=== PATIENT | female | born 1960 | race Caucasian/White ===

== ENCOUNTER 2018-02-09 12:41 | Outpatient (RCR) | payer OTHER ==
[~2018-02-09 12:41] MED LIST: DIOVAN40 MG PO; GLUMETZA500 MG PO; GLYBURIDE5 MG PO; IBUPROFEN200 MG PO; LASIX20 MG PO; MELOXICAM15 MG PO; MULTI-DAY VITA1 EACH PO; OSTERA TABLET1 EACH PO; PLAVIX75 MG PO; [UNRECOGNIZED DRUG - OTHER] PO
[2018-02-09] MEDS ORDERED: LIDOCAINE VISC 2% SOLN 15 ML UDC ONE (13:38)
== END 2018-02-12 ==
LOC: WCC 12:41
PROVIDERS: ATTEND Podiatrist Foot & Ankle Surgery
DX: E11.621 Type 2 diabetes mellitus with foot ulcer (principal); E11.40 Type 2 diabetes mellitus with diabetic neuropathy, unspecified; E11.65 Type 2 diabetes mellitus with hyperglycemia; L97.428 Non-pressure chronic ulcer of left heel and midfoot with other specified severity; L97.518 Non-pressure chronic ulcer of other part of right foot with other specified severity; L97.418 Non-pressure chronic ulcer of right heel and midfoot with other specified severity; R60.0 Localized edema; I87.2 Venous insufficiency (chronic) (peripheral); I89.0 Lymphedema, not elsewhere classified; I73.89 Other specified peripheral vascular diseases; I10 Essential (primary) hypertension; I48.2 Chronic atrial fibrillation; E66.01 Morbid (severe) obesity due to excess calories; M81.0 Age-related osteoporosis without current pathological fracture

== ENCOUNTER → 2018-02-14 | Outpatient (CLI) | payer OTHER ==
[~2018-02-14] MED LIST changes: +MINERAL OIL/PETROLAT/GLYCERI 6OZ BTL ONE
== END ==
LOC: WCC 11:11
PROVIDERS: ATTEND Podiatrist Foot & Ankle Surgery
DX: E11.621 Type 2 diabetes mellitus with foot ulcer (principal); E11.40 Type 2 diabetes mellitus with diabetic neuropathy, unspecified; E11.65 Type 2 diabetes mellitus with hyperglycemia; L97.428 Non-pressure chronic ulcer of left heel and midfoot with other specified severity; L97.518 Non-pressure chronic ulcer of other part of right foot with other specified severity; L97.418 Non-pressure chronic ulcer of right heel and midfoot with other specified severity; R60.0 Localized edema; I73.89 Other specified peripheral vascular diseases; I89.0 Lymphedema, not elsewhere classified; M81.0 Age-related osteoporosis without current pathological fracture; I87.2 Venous insufficiency (chronic) (peripheral); I48.2 Chronic atrial fibrillation; I10 Essential (primary) hypertension; E66.01 Morbid (severe) obesity due to excess calories

== ENCOUNTER 2018-03-09 12:55 | Outpatient (RCR) | payer OTHER ==
[~2018-03-09 12:55] MED LIST changes: +LIDOCAINE VISC 2% SOLN 15 ML UDC ONE
[2018-03-09] MEDS ORDERED: LIDOCAINE VISC 2% SOLN 15 ML UDC ONE (17:40)
== END 2018-03-14 ==
LOC: WCC 12:55
PROVIDERS: ATTEND Podiatrist Foot & Ankle Surgery
DX: E11.621 Type 2 diabetes mellitus with foot ulcer (principal); E11.65 Type 2 diabetes mellitus with hyperglycemia; E11.40 Type 2 diabetes mellitus with diabetic neuropathy, unspecified; L97.428 Non-pressure chronic ulcer of left heel and midfoot with other specified severity; L97.518 Non-pressure chronic ulcer of other part of right foot with other specified severity; L97.418 Non-pressure chronic ulcer of right heel and midfoot with other specified severity; R60.0 Localized edema; I87.2 Venous insufficiency (chronic) (peripheral); I89.0 Lymphedema, not elsewhere classified; I73.89 Other specified peripheral vascular diseases; I10 Essential (primary) hypertension; I48.2 Chronic atrial fibrillation; E66.01 Morbid (severe) obesity due to excess calories; M81.0 Age-related osteoporosis without current pathological fracture
CPT/HCPCS: 36415; 82948

== ENCOUNTER → 2018-03-23 | Outpatient (CLI) | payer OTHER ==
[~2018-03-23] MED LIST changes: -LIDOCAINE VISC 2% SOLN 15 ML UDC ONE; -MINERAL OIL/PETROLAT/GLYCERI 6OZ BTL ONE
== END ==
LOC: WCC 08:00
PROVIDERS: ATTEND Podiatrist Foot & Ankle Surgery
DX: E11.65 Type 2 diabetes mellitus with hyperglycemia (principal); E11.40 Type 2 diabetes mellitus with diabetic neuropathy, unspecified; E11.621 Type 2 diabetes mellitus with foot ulcer; L97.428 Non-pressure chronic ulcer of left heel and midfoot with other specified severity; L97.518 Non-pressure chronic ulcer of other part of right foot with other specified severity; R60.0 Localized edema; I73.89 Other specified peripheral vascular diseases; I89.0 Lymphedema, not elsewhere classified; I10 Essential (primary) hypertension; I87.2 Venous insufficiency (chronic) (peripheral); I48.2 Chronic atrial fibrillation; E66.01 Morbid (severe) obesity due to excess calories; M81.0 Age-related osteoporosis without current pathological fracture
CPT/HCPCS: 15275; 29581; Q4131

== ENCOUNTER → 2018-03-30 | Outpatient (CLI) | payer OTHER | LOC: WCC 08:00 | PROVIDERS: ATTEND Podiatrist Foot & Ankle Surgery | DX: E11.65 Type 2 diabetes mellitus with hyperglycemia (principal); E11.40 Type 2 diabetes mellitus with diabetic neuropathy, unspecified; E11.621 Type 2 diabetes mellitus with foot ulcer; L97.428 Non-pressure chronic ulcer of left heel and midfoot with other specified severity; L97.518 Non-pressure chronic ulcer of other part of right foot with other specified severity; R60.0 Localized edema; I89.0 Lymphedema, not elsewhere classified; I87.2 Venous insufficiency (chronic) (peripheral); I73.89 Other specified peripheral vascular diseases; I10 Essential (primary) hypertension; I48.2 Chronic atrial fibrillation; E66.01 Morbid (severe) obesity due to excess calories; M81.0 Age-related osteoporosis without current pathological fracture | CPT/HCPCS: 15275; 29581; Q4131 ==

== ENCOUNTER 2018-04-08 13:40 | Outpatient (RCR) | payer OTHER ==
[~2018-04-08 13:40] MED LIST changes: +LIDOCAINE VISC 2% SOLN 15 ML UDC ONE; +MINERAL OIL/PETROLAT/GLYCERI 6OZ BTL ONE
[2018-04-13] MEDS ORDERED: MINERAL OIL/PETROLAT/GLYCERI 6OZ BTL ONE (12:15)
== END 2018-04-14 ==
LOC: WCC 13:40
PROVIDERS: ATTEND Podiatrist Foot & Ankle Surgery
DX: E11.621 Type 2 diabetes mellitus with foot ulcer (principal); E11.65 Type 2 diabetes mellitus with hyperglycemia; E11.40 Type 2 diabetes mellitus with diabetic neuropathy, unspecified; L97.428 Non-pressure chronic ulcer of left heel and midfoot with other specified severity; L97.518 Non-pressure chronic ulcer of other part of right foot with other specified severity; R60.0 Localized edema; I89.0 Lymphedema, not elsewhere classified; I10 Essential (primary) hypertension; I48.2 Chronic atrial fibrillation; I73.89 Other specified peripheral vascular diseases; I87.2 Venous insufficiency (chronic) (peripheral); E66.01 Morbid (severe) obesity due to excess calories; M81.0 Age-related osteoporosis without current pathological fracture
CPT/HCPCS: 15275 ×3; 29581 ×3; 97597; 99213; Q4131 ×3

== ENCOUNTER → 2018-04-08 | Outpatient (CLI) | payer OTHER | LOC: WCC 08:00 | PROVIDERS: ATTEND Podiatrist Foot & Ankle Surgery | DX: E11.621 Type 2 diabetes mellitus with foot ulcer (principal); E11.65 Type 2 diabetes mellitus with hyperglycemia; E11.40 Type 2 diabetes mellitus with diabetic neuropathy, unspecified; L97.518 Non-pressure chronic ulcer of other part of right foot with other specified severity; L97.428 Non-pressure chronic ulcer of left heel and midfoot with other specified severity; I87.2 Venous insufficiency (chronic) (peripheral); R60.0 Localized edema; I89.0 Lymphedema, not elsewhere classified; I73.89 Other specified peripheral vascular diseases; M81.0 Age-related osteoporosis without current pathological fracture; I10 Essential (primary) hypertension; I48.2 Chronic atrial fibrillation; E66.01 Morbid (severe) obesity due to excess calories ==

== ENCOUNTER → 2018-04-13 | Outpatient (CLI) | payer OTHER ==
[~2018-04-13] MED LIST changes: -LIDOCAINE VISC 2% SOLN 15 ML UDC ONE; -MINERAL OIL/PETROLAT/GLYCERI 6OZ BTL ONE
== END ==
LOC: WCC 08:00
PROVIDERS: ATTEND Podiatrist Foot & Ankle Surgery
DX: E11.65 Type 2 diabetes mellitus with hyperglycemia (principal); E11.40 Type 2 diabetes mellitus with diabetic neuropathy, unspecified; E11.621 Type 2 diabetes mellitus with foot ulcer; L97.428 Non-pressure chronic ulcer of left heel and midfoot with other specified severity; L97.518 Non-pressure chronic ulcer of other part of right foot with other specified severity; R60.0 Localized edema; I73.89 Other specified peripheral vascular diseases; I89.0 Lymphedema, not elsewhere classified; I87.2 Venous insufficiency (chronic) (peripheral); I10 Essential (primary) hypertension; E66.01 Morbid (severe) obesity due to excess calories; I48.2 Chronic atrial fibrillation; M81.0 Age-related osteoporosis without current pathological fracture
CPT/HCPCS: 15275; 99213; Q4131

== ENCOUNTER → 2018-04-25 | Outpatient (CLI) | payer OTHER ==
[~2018-04-25] MED LIST changes: +MINERAL OIL/PETROLAT/GLYCERI 6OZ BTL ONE
== END ==
LOC: EDSTATUS 04-20 09:14 → WCC 10:27
PROVIDERS: ATTEND Podiatrist Foot & Ankle Surgery
DX: E11.621 Type 2 diabetes mellitus with foot ulcer (principal); E11.65 Type 2 diabetes mellitus with hyperglycemia; E11.40 Type 2 diabetes mellitus with diabetic neuropathy, unspecified; L97.428 Non-pressure chronic ulcer of left heel and midfoot with other specified severity; L97.518 Non-pressure chronic ulcer of other part of right foot with other specified severity; I89.0 Lymphedema, not elsewhere classified; R60.0 Localized edema; S90.421A Blister (nonthermal), right great toe, initial encounter; S90.424A Blister (nonthermal), right lesser toe(s), initial encounter; I87.2 Venous insufficiency (chronic) (peripheral); I73.89 Other specified peripheral vascular diseases; I10 Essential (primary) hypertension; I48.2 Chronic atrial fibrillation; E66.01 Morbid (severe) obesity due to excess calories; M81.0 Age-related osteoporosis without current pathological fracture

== ENCOUNTER → 2018-05-20 | Outpatient (CLI) | payer OTHER | LOC: WCC 11:12 | PROVIDERS: ATTEND Family Medicine | DX: E11.65 Type 2 diabetes mellitus with hyperglycemia (principal); E11.40 Type 2 diabetes mellitus with diabetic neuropathy, unspecified; E11.621 Type 2 diabetes mellitus with foot ulcer; L97.428 Non-pressure chronic ulcer of left heel and midfoot with other specified severity; I89.0 Lymphedema, not elsewhere classified; R60.0 Localized edema; I87.2 Venous insufficiency (chronic) (peripheral); I73.89 Other specified peripheral vascular diseases; S90.421A Blister (nonthermal), right great toe, initial encounter; I10 Essential (primary) hypertension; E66.01 Morbid (severe) obesity due to excess calories; I48.2 Chronic atrial fibrillation; M81.0 Age-related osteoporosis without current pathological fracture ==

== ENCOUNTER → 2018-06-15 | Outpatient (CLI) | payer OTHER ==
[~2018-06-15] MED LIST changes: -MINERAL OIL/PETROLAT/GLYCERI 6OZ BTL ONE
== END ==
LOC: WCC 13:39
PROVIDERS: ATTEND Podiatrist Foot & Ankle Surgery
DX: E11.65 Type 2 diabetes mellitus with hyperglycemia (principal); E11.40 Type 2 diabetes mellitus with diabetic neuropathy, unspecified; E11.621 Type 2 diabetes mellitus with foot ulcer; L97.428 Non-pressure chronic ulcer of left heel and midfoot with other specified severity; L97.511 Non-pressure chronic ulcer of other part of right foot limited to breakdown of skin; I73.89 Other specified peripheral vascular diseases; I89.0 Lymphedema, not elsewhere classified; R60.0 Localized edema; S90.421A Blister (nonthermal), right great toe, initial encounter; I10 Essential (primary) hypertension; I87.2 Venous insufficiency (chronic) (peripheral); I48.2 Chronic atrial fibrillation; E66.01 Morbid (severe) obesity due to excess calories; M81.0 Age-related osteoporosis without current pathological fracture

== ENCOUNTER → 2018-06-20 | Outpatient (CLI) | payer OTHER | LOC: EDSEX → WCC 14:33 | PROVIDERS: ATTEND Podiatrist Foot & Ankle Surgery | DX: E11.621 Type 2 diabetes mellitus with foot ulcer (principal); E11.65 Type 2 diabetes mellitus with hyperglycemia; E11.40 Type 2 diabetes mellitus with diabetic neuropathy, unspecified; L97.511 Non-pressure chronic ulcer of other part of right foot limited to breakdown of skin; L97.428 Non-pressure chronic ulcer of left heel and midfoot with other specified severity; S90.421A Blister (nonthermal), right great toe, initial encounter; R60.0 Localized edema; M81.0 Age-related osteoporosis without current pathological fracture; I87.2 Venous insufficiency (chronic) (peripheral); I89.0 Lymphedema, not elsewhere classified; I73.89 Other specified peripheral vascular diseases; I48.2 Chronic atrial fibrillation; I10 Essential (primary) hypertension; E66.01 Morbid (severe) obesity due to excess calories ==

== ENCOUNTER → 2018-06-27 | Outpatient (CLI) | payer OTHER | LOC: WCC 11:44 | PROVIDERS: ATTEND Podiatrist Foot & Ankle Surgery | DX: E11.621 Type 2 diabetes mellitus with foot ulcer (principal); E11.65 Type 2 diabetes mellitus with hyperglycemia; E11.40 Type 2 diabetes mellitus with diabetic neuropathy, unspecified; L97.428 Non-pressure chronic ulcer of left heel and midfoot with other specified severity; L97.511 Non-pressure chronic ulcer of other part of right foot limited to breakdown of skin; I87.2 Venous insufficiency (chronic) (peripheral); I73.89 Other specified peripheral vascular diseases; I89.0 Lymphedema, not elsewhere classified; R60.0 Localized edema; S90.421A Blister (nonthermal), right great toe, initial encounter; I48.2 Chronic atrial fibrillation; I10 Essential (primary) hypertension; M81.0 Age-related osteoporosis without current pathological fracture; E66.01 Morbid (severe) obesity due to excess calories ==

== ENCOUNTER → 2018-07-04 | Outpatient (CLI) | payer OTHER | LOC: WCC 14:06 | PROVIDERS: ATTEND Podiatrist Foot & Ankle Surgery | DX: E11.65 Type 2 diabetes mellitus with hyperglycemia (principal); E11.40 Type 2 diabetes mellitus with diabetic neuropathy, unspecified; E11.621 Type 2 diabetes mellitus with foot ulcer; L97.428 Non-pressure chronic ulcer of left heel and midfoot with other specified severity; L97.511 Non-pressure chronic ulcer of other part of right foot limited to breakdown of skin; L97.519 Non-pressure chronic ulcer of other part of right foot with unspecified severity; I87.2 Venous insufficiency (chronic) (peripheral); I89.0 Lymphedema, not elsewhere classified; I73.89 Other specified peripheral vascular diseases; S90.421A Blister (nonthermal), right great toe, initial encounter; R60.0 Localized edema; I10 Essential (primary) hypertension; I48.2 Chronic atrial fibrillation; M81.0 Age-related osteoporosis without current pathological fracture; E66.01 Morbid (severe) obesity due to excess calories ==

== ENCOUNTER → 2018-07-07 | Outpatient (CLI) | payer OTHER | LOC: EDSEX → WCC 14:05 | PROVIDERS: ATTEND Podiatrist Foot & Ankle Surgery | DX: E11.65 Type 2 diabetes mellitus with hyperglycemia (principal); E11.40 Type 2 diabetes mellitus with diabetic neuropathy, unspecified; E11.621 Type 2 diabetes mellitus with foot ulcer; L97.428 Non-pressure chronic ulcer of left heel and midfoot with other specified severity; L97.511 Non-pressure chronic ulcer of other part of right foot limited to breakdown of skin; L97.519 Non-pressure chronic ulcer of other part of right foot with unspecified severity; I87.2 Venous insufficiency (chronic) (peripheral); I89.0 Lymphedema, not elsewhere classified; I73.89 Other specified peripheral vascular diseases; S90.421A Blister (nonthermal), right great toe, initial encounter; R60.0 Localized edema; I10 Essential (primary) hypertension; I48.2 Chronic atrial fibrillation; M81.0 Age-related osteoporosis without current pathological fracture; E66.01 Morbid (severe) obesity due to excess calories ==

== ENCOUNTER → 2018-07-13 | Outpatient (CLI) | payer OTHER | LOC: WCC 15:07 | PROVIDERS: ATTEND Podiatrist Foot & Ankle Surgery | DX: E11.65 Type 2 diabetes mellitus with hyperglycemia (principal); E11.40 Type 2 diabetes mellitus with diabetic neuropathy, unspecified; E11.621 Type 2 diabetes mellitus with foot ulcer; L97.428 Non-pressure chronic ulcer of left heel and midfoot with other specified severity; L97.511 Non-pressure chronic ulcer of other part of right foot limited to breakdown of skin; L97.519 Non-pressure chronic ulcer of other part of right foot with unspecified severity; R60.0 Localized edema; I73.89 Other specified peripheral vascular diseases; I87.2 Venous insufficiency (chronic) (peripheral); I89.0 Lymphedema, not elsewhere classified; S90.421A Blister (nonthermal), right great toe, initial encounter; I10 Essential (primary) hypertension; I48.2 Chronic atrial fibrillation; E66.01 Morbid (severe) obesity due to excess calories; M81.0 Age-related osteoporosis without current pathological fracture | CPT/HCPCS: 87071; 87075; 87205 ==

== ENCOUNTER → 2018-07-27 | Outpatient (CLI) | payer OTHER | LOC: EDSEX → EDBD → WCC 13:02 | PROVIDERS: ATTEND Podiatrist Foot & Ankle Surgery | DX: E11.621 Type 2 diabetes mellitus with foot ulcer (principal); E11.65 Type 2 diabetes mellitus with hyperglycemia; E11.40 Type 2 diabetes mellitus with diabetic neuropathy, unspecified; L97.428 Non-pressure chronic ulcer of left heel and midfoot with other specified severity; B96.29 Other Escherichia coli [E. coli] as the cause of diseases classified elsewhere; L97.511 Non-pressure chronic ulcer of other part of right foot limited to breakdown of skin; L97.519 Non-pressure chronic ulcer of other part of right foot with unspecified severity; R60.0 Localized edema; I89.0 Lymphedema, not elsewhere classified; I87.2 Venous insufficiency (chronic) (peripheral); I73.89 Other specified peripheral vascular diseases; I10 Essential (primary) hypertension; E66.01 Morbid (severe) obesity due to excess calories; I48.2 Chronic atrial fibrillation; M81.0 Age-related osteoporosis without current pathological fracture; S90.421A Blister (nonthermal), right great toe, initial encounter ==

== ENCOUNTER → 2018-08-10 | Outpatient (CLI) | payer OTHER | LOC: WCC 14:09 | PROVIDERS: ATTEND Podiatrist Foot & Ankle Surgery | DX: E11.621 Type 2 diabetes mellitus with foot ulcer (principal); E11.65 Type 2 diabetes mellitus with hyperglycemia; E11.40 Type 2 diabetes mellitus with diabetic neuropathy, unspecified; L97.428 Non-pressure chronic ulcer of left heel and midfoot with other specified severity; L97.511 Non-pressure chronic ulcer of other part of right foot limited to breakdown of skin; L97.519 Non-pressure chronic ulcer of other part of right foot with unspecified severity; I87.2 Venous insufficiency (chronic) (peripheral); I73.89 Other specified peripheral vascular diseases; I89.0 Lymphedema, not elsewhere classified; R60.0 Localized edema; S90.421A Blister (nonthermal), right great toe, initial encounter; I10 Essential (primary) hypertension; I48.2 Chronic atrial fibrillation; B96.29 Other Escherichia coli [E. coli] as the cause of diseases classified elsewhere; E66.01 Morbid (severe) obesity due to excess calories; M81.0 Age-related osteoporosis without current pathological fracture ==

== ENCOUNTER → 2018-08-24 | Outpatient (CLI) | payer OTHER ==
[~2018-08-24] MED LIST changes: +MINERAL OIL/PETROLAT/GLYCERI 6OZ BTL ONE
== END ==
LOC: WCC 13:31
PROVIDERS: ATTEND Family Medicine
DX: E11.621 Type 2 diabetes mellitus with foot ulcer (principal); E11.65 Type 2 diabetes mellitus with hyperglycemia; E11.40 Type 2 diabetes mellitus with diabetic neuropathy, unspecified; L97.428 Non-pressure chronic ulcer of left heel and midfoot with other specified severity; L97.511 Non-pressure chronic ulcer of other part of right foot limited to breakdown of skin; L97.519 Non-pressure chronic ulcer of other part of right foot with unspecified severity; I73.89 Other specified peripheral vascular diseases; R60.0 Localized edema; I10 Essential (primary) hypertension; I48.2 Chronic atrial fibrillation; B96.29 Other Escherichia coli [E. coli] as the cause of diseases classified elsewhere; E66.01 Morbid (severe) obesity due to excess calories; I87.2 Venous insufficiency (chronic) (peripheral); I89.0 Lymphedema, not elsewhere classified; M81.0 Age-related osteoporosis without current pathological fracture; S90.421A Blister (nonthermal), right great toe, initial encounter

== ENCOUNTER → 2018-09-21 | Outpatient (CLI) | payer OTHER ==
[~2018-09-21] MED LIST changes: +LIDOCAINE/PRILOCAINE 2.5-2.5% KIT ONE
== END ==
LOC: EDBD → WCC 12:53
PROVIDERS: ATTEND Family Medicine
DX: E11.621 Type 2 diabetes mellitus with foot ulcer (principal); E11.40 Type 2 diabetes mellitus with diabetic neuropathy, unspecified; E11.65 Type 2 diabetes mellitus with hyperglycemia; L97.428 Non-pressure chronic ulcer of left heel and midfoot with other specified severity; L97.511 Non-pressure chronic ulcer of other part of right foot limited to breakdown of skin; L97.519 Non-pressure chronic ulcer of other part of right foot with unspecified severity; R60.0 Localized edema; I73.89 Other specified peripheral vascular diseases; I87.2 Venous insufficiency (chronic) (peripheral); I89.0 Lymphedema, not elsewhere classified; S90.421A Blister (nonthermal), right great toe, initial encounter; I10 Essential (primary) hypertension; B96.29 Other Escherichia coli [E. coli] as the cause of diseases classified elsewhere; E66.01 Morbid (severe) obesity due to excess calories; I48.2 Chronic atrial fibrillation; M81.0 Age-related osteoporosis without current pathological fracture

== ENCOUNTER → 2018-10-05 | Outpatient (CLI) | payer OTHER ==
[~2018-10-05] MED LIST changes: -LIDOCAINE/PRILOCAINE 2.5-2.5% KIT ONE; -MINERAL OIL/PETROLAT/GLYCERI 6OZ BTL ONE
== END ==
LOC: EDBD → WCC 12:13
PROVIDERS: ATTEND Family Medicine
DX: E11.621 Type 2 diabetes mellitus with foot ulcer (principal); E11.40 Type 2 diabetes mellitus with diabetic neuropathy, unspecified; E11.65 Type 2 diabetes mellitus with hyperglycemia; L97.428 Non-pressure chronic ulcer of left heel and midfoot with other specified severity; L97.511 Non-pressure chronic ulcer of other part of right foot limited to breakdown of skin; L03.818 Cellulitis of other sites; B96.29 Other Escherichia coli [E. coli] as the cause of diseases classified elsewhere; R60.0 Localized edema; S90.421A Blister (nonthermal), right great toe, initial encounter; M81.0 Age-related osteoporosis without current pathological fracture; I10 Essential (primary) hypertension; E66.01 Morbid (severe) obesity due to excess calories; I48.2 Chronic atrial fibrillation; I73.89 Other specified peripheral vascular diseases; I87.2 Venous insufficiency (chronic) (peripheral); I89.0 Lymphedema, not elsewhere classified
CPT/HCPCS: 87071; 87075; 87186; 87205

== ENCOUNTER → 2018-10-12 | Outpatient (CLI) | payer OTHER | LOC: EDBD → WCC 14:59 | PROVIDERS: ATTEND Family Medicine | DX: E11.621 Type 2 diabetes mellitus with foot ulcer (principal); E11.40 Type 2 diabetes mellitus with diabetic neuropathy, unspecified; E11.65 Type 2 diabetes mellitus with hyperglycemia; L97.428 Non-pressure chronic ulcer of left heel and midfoot with other specified severity; L97.511 Non-pressure chronic ulcer of other part of right foot limited to breakdown of skin; L03.818 Cellulitis of other sites; R60.0 Localized edema; I89.0 Lymphedema, not elsewhere classified; I87.2 Venous insufficiency (chronic) (peripheral); S90.421A Blister (nonthermal), right great toe, initial encounter; I10 Essential (primary) hypertension; I48.2 Chronic atrial fibrillation; I73.89 Other specified peripheral vascular diseases; B96.29 Other Escherichia coli [E. coli] as the cause of diseases classified elsewhere; E66.01 Morbid (severe) obesity due to excess calories; M81.0 Age-related osteoporosis without current pathological fracture ==

== ENCOUNTER → 2018-10-19 | Outpatient (CLI) | payer OTHER ==
[~2018-10-19] MED LIST changes: +MINERAL OIL/PETROLAT/GLYCERI 6OZ BTL ONE
== END ==
LOC: EDBD → WCC 13:57
PROVIDERS: ATTEND Family Medicine
DX: E11.621 Type 2 diabetes mellitus with foot ulcer (principal); E11.65 Type 2 diabetes mellitus with hyperglycemia; E11.40 Type 2 diabetes mellitus with diabetic neuropathy, unspecified; L97.428 Non-pressure chronic ulcer of left heel and midfoot with other specified severity; L97.519 Non-pressure chronic ulcer of other part of right foot with unspecified severity; L97.511 Non-pressure chronic ulcer of other part of right foot limited to breakdown of skin; L03.818 Cellulitis of other sites; I87.2 Venous insufficiency (chronic) (peripheral); I89.0 Lymphedema, not elsewhere classified; I73.89 Other specified peripheral vascular diseases; R60.0 Localized edema; S90.421A Blister (nonthermal), right great toe, initial encounter; I10 Essential (primary) hypertension; B96.29 Other Escherichia coli [E. coli] as the cause of diseases classified elsewhere; Z16.35 Resistance to multiple antimicrobial drugs; E66.01 Morbid (severe) obesity due to excess calories; I48.2 Chronic atrial fibrillation; M81.0 Age-related osteoporosis without current pathological fracture

== ENCOUNTER → 2018-10-26 | Outpatient (CLI) | payer OTHER ==
[~2018-10-26] MED LIST changes: -MINERAL OIL/PETROLAT/GLYCERI 6OZ BTL ONE
== END ==
LOC: EDBD → WCC 15:36
PROVIDERS: ATTEND Family Medicine
DX: E11.621 Type 2 diabetes mellitus with foot ulcer (principal); E11.40 Type 2 diabetes mellitus with diabetic neuropathy, unspecified; E11.65 Type 2 diabetes mellitus with hyperglycemia; L97.428 Non-pressure chronic ulcer of left heel and midfoot with other specified severity; L97.519 Non-pressure chronic ulcer of other part of right foot with unspecified severity; L97.511 Non-pressure chronic ulcer of other part of right foot limited to breakdown of skin; L03.818 Cellulitis of other sites; I89.0 Lymphedema, not elsewhere classified; I73.89 Other specified peripheral vascular diseases; I87.2 Venous insufficiency (chronic) (peripheral); R60.0 Localized edema; S90.421A Blister (nonthermal), right great toe, initial encounter; I10 Essential (primary) hypertension; I48.2 Chronic atrial fibrillation; B96.29 Other Escherichia coli [E. coli] as the cause of diseases classified elsewhere; Z16.35 Resistance to multiple antimicrobial drugs; E66.01 Morbid (severe) obesity due to excess calories; M81.0 Age-related osteoporosis without current pathological fracture

== ENCOUNTER → 2018-11-04 | Outpatient (CLI) | payer OTHER | LOC: EDBD → WCC 12:11 | PROVIDERS: ATTEND Family Medicine | DX: E11.621 Type 2 diabetes mellitus with foot ulcer (principal); E11.40 Type 2 diabetes mellitus with diabetic neuropathy, unspecified; E11.65 Type 2 diabetes mellitus with hyperglycemia; L97.428 Non-pressure chronic ulcer of left heel and midfoot with other specified severity; L97.519 Non-pressure chronic ulcer of other part of right foot with unspecified severity; L97.511 Non-pressure chronic ulcer of other part of right foot limited to breakdown of skin; L03.818 Cellulitis of other sites; I89.0 Lymphedema, not elsewhere classified; I87.2 Venous insufficiency (chronic) (peripheral); S90.421A Blister (nonthermal), right great toe, initial encounter; R60.0 Localized edema; I73.89 Other specified peripheral vascular diseases; I10 Essential (primary) hypertension; I48.2 Chronic atrial fibrillation; M81.0 Age-related osteoporosis without current pathological fracture; Z16.35 Resistance to multiple antimicrobial drugs; B96.29 Other Escherichia coli [E. coli] as the cause of diseases classified elsewhere; E66.01 Morbid (severe) obesity due to excess calories ==

== ENCOUNTER → 2018-11-16 | Outpatient (CLI) | payer OTHER ==
[~2018-11-16] MED LIST changes: +MINERAL OIL/PETROLAT/GLYCERI 6OZ BTL ONE
== END ==
LOC: WCC 12:50
PROVIDERS: ATTEND Podiatrist Foot & Ankle Surgery
DX: E11.621 Type 2 diabetes mellitus with foot ulcer (principal); E11.65 Type 2 diabetes mellitus with hyperglycemia; E11.40 Type 2 diabetes mellitus with diabetic neuropathy, unspecified; L97.428 Non-pressure chronic ulcer of left heel and midfoot with other specified severity; L97.529 Non-pressure chronic ulcer of other part of left foot with unspecified severity; L97.511 Non-pressure chronic ulcer of other part of right foot limited to breakdown of skin; L97.519 Non-pressure chronic ulcer of other part of right foot with unspecified severity; L03.818 Cellulitis of other sites; S90.421A Blister (nonthermal), right great toe, initial encounter; R60.0 Localized edema; I89.0 Lymphedema, not elsewhere classified; I87.2 Venous insufficiency (chronic) (peripheral); I73.89 Other specified peripheral vascular diseases; I10 Essential (primary) hypertension; B96.29 Other Escherichia coli [E. coli] as the cause of diseases classified elsewhere; Z16.35 Resistance to multiple antimicrobial drugs; E66.01 Morbid (severe) obesity due to excess calories; I48.2 Chronic atrial fibrillation; M81.0 Age-related osteoporosis without current pathological fracture

== ENCOUNTER → 2018-12-14 | Outpatient (CLI) | payer OTHER ==
[~2018-12-14] MED LIST changes: -MINERAL OIL/PETROLAT/GLYCERI 6OZ BTL ONE
== END ==
LOC: WCC 12:57
PROVIDERS: ATTEND Podiatrist Foot & Ankle Surgery
DX: E11.621 Type 2 diabetes mellitus with foot ulcer (principal); E11.65 Type 2 diabetes mellitus with hyperglycemia; E11.40 Type 2 diabetes mellitus with diabetic neuropathy, unspecified; L97.529 Non-pressure chronic ulcer of other part of left foot with unspecified severity; L97.428 Non-pressure chronic ulcer of left heel and midfoot with other specified severity; L97.511 Non-pressure chronic ulcer of other part of right foot limited to breakdown of skin; L97.519 Non-pressure chronic ulcer of other part of right foot with unspecified severity; L03.818 Cellulitis of other sites; I89.0 Lymphedema, not elsewhere classified; I87.2 Venous insufficiency (chronic) (peripheral); R60.0 Localized edema; S90.421A Blister (nonthermal), right great toe, initial encounter; M81.0 Age-related osteoporosis without current pathological fracture; I73.89 Other specified peripheral vascular diseases; I10 Essential (primary) hypertension; B96.29 Other Escherichia coli [E. coli] as the cause of diseases classified elsewhere; E66.01 Morbid (severe) obesity due to excess calories; I48.2 Chronic atrial fibrillation; Z16.35 Resistance to multiple antimicrobial drugs

== ENCOUNTER → 2019-01-02 | Outpatient (CLI) | payer OTHER ==
[~2019-01-02] MED LIST changes: +MINERAL OIL/PETROLAT/GLYCERI 6OZ BTL ONE
== END ==
LOC: WCC 14:23
PROVIDERS: ATTEND Podiatrist Foot & Ankle Surgery
DX: E11.621 Type 2 diabetes mellitus with foot ulcer (principal); E11.40 Type 2 diabetes mellitus with diabetic neuropathy, unspecified; E11.65 Type 2 diabetes mellitus with hyperglycemia; L97.428 Non-pressure chronic ulcer of left heel and midfoot with other specified severity; L97.529 Non-pressure chronic ulcer of other part of left foot with unspecified severity; L97.511 Non-pressure chronic ulcer of other part of right foot limited to breakdown of skin; S90.421A Blister (nonthermal), right great toe, initial encounter; I73.89 Other specified peripheral vascular diseases; I87.2 Venous insufficiency (chronic) (peripheral); R60.0 Localized edema; I89.0 Lymphedema, not elsewhere classified; I10 Essential (primary) hypertension; E66.01 Morbid (severe) obesity due to excess calories; I48.2 Chronic atrial fibrillation; M81.0 Age-related osteoporosis without current pathological fracture

== ENCOUNTER → 2019-01-30 | Outpatient (CLI) | payer OTHER | LOC: WCC 14:39 | PROVIDERS: ATTEND Podiatrist Foot & Ankle Surgery | DX: E11.621 Type 2 diabetes mellitus with foot ulcer (principal); E11.40 Type 2 diabetes mellitus with diabetic neuropathy, unspecified; E11.65 Type 2 diabetes mellitus with hyperglycemia; L97.428 Non-pressure chronic ulcer of left heel and midfoot with other specified severity; L97.511 Non-pressure chronic ulcer of other part of right foot limited to breakdown of skin; I73.89 Other specified peripheral vascular diseases; S90.421A Blister (nonthermal), right great toe, initial encounter; I89.0 Lymphedema, not elsewhere classified; I87.2 Venous insufficiency (chronic) (peripheral); R60.0 Localized edema; I10 Essential (primary) hypertension; I48.2 Chronic atrial fibrillation; E66.01 Morbid (severe) obesity due to excess calories; M81.0 Age-related osteoporosis without current pathological fracture ==

== ENCOUNTER → 2019-02-13 | Outpatient (CLI) | payer OTHER ==
[~2019-02-13] MED LIST changes: +TRIAMCINOLONE ACET 0.1% CREAM 15 GM TUBE ONE
== END ==
LOC: WCC 13:49
PROVIDERS: ATTEND Podiatrist Foot & Ankle Surgery
DX: E11.621 Type 2 diabetes mellitus with foot ulcer (principal); E11.40 Type 2 diabetes mellitus with diabetic neuropathy, unspecified; E11.65 Type 2 diabetes mellitus with hyperglycemia; L97.428 Non-pressure chronic ulcer of left heel and midfoot with other specified severity; L97.429 Non-pressure chronic ulcer of left heel and midfoot with unspecified severity; L97.511 Non-pressure chronic ulcer of other part of right foot limited to breakdown of skin; L97.419 Non-pressure chronic ulcer of right heel and midfoot with unspecified severity; L97.519 Non-pressure chronic ulcer of other part of right foot with unspecified severity; R60.0 Localized edema; S90.421A Blister (nonthermal), right great toe, initial encounter; I73.89 Other specified peripheral vascular diseases; I87.2 Venous insufficiency (chronic) (peripheral); I89.0 Lymphedema, not elsewhere classified; I10 Essential (primary) hypertension; E66.01 Morbid (severe) obesity due to excess calories; I48.2 Chronic atrial fibrillation; M81.0 Age-related osteoporosis without current pathological fracture

== ENCOUNTER → 2019-02-15 | Outpatient (CLI) | payer OTHER ==
[~2019-02-15] MED LIST changes: +LIDOCAINE VISC 2% SOLN 15 ML UDC ONE; -TRIAMCINOLONE ACET 0.1% CREAM 15 GM TUBE ONE
== END ==
LOC: WCC 16:32
PROVIDERS: ATTEND Family Medicine
DX: E11.621 Type 2 diabetes mellitus with foot ulcer (principal); E11.65 Type 2 diabetes mellitus with hyperglycemia; E11.40 Type 2 diabetes mellitus with diabetic neuropathy, unspecified; L97.428 Non-pressure chronic ulcer of left heel and midfoot with other specified severity; L97.429 Non-pressure chronic ulcer of left heel and midfoot with unspecified severity; L97.519 Non-pressure chronic ulcer of other part of right foot with unspecified severity; L97.419 Non-pressure chronic ulcer of right heel and midfoot with unspecified severity; S90.421A Blister (nonthermal), right great toe, initial encounter; I87.2 Venous insufficiency (chronic) (peripheral); I89.0 Lymphedema, not elsewhere classified; R60.0 Localized edema; I73.89 Other specified peripheral vascular diseases; M81.0 Age-related osteoporosis without current pathological fracture; I48.2 Chronic atrial fibrillation; I10 Essential (primary) hypertension; E66.01 Morbid (severe) obesity due to excess calories

== ENCOUNTER → 2019-02-17 | Outpatient (CLI) | payer OTHER ==
[~2019-02-17] MED LIST changes: -LIDOCAINE VISC 2% SOLN 15 ML UDC ONE; -MINERAL OIL/PETROLAT/GLYCERI 6OZ BTL ONE
== END ==
LOC: WCC 15:39
PROVIDERS: ATTEND Family Medicine
DX: E11.621 Type 2 diabetes mellitus with foot ulcer (principal); E11.40 Type 2 diabetes mellitus with diabetic neuropathy, unspecified; E11.65 Type 2 diabetes mellitus with hyperglycemia; L97.428 Non-pressure chronic ulcer of left heel and midfoot with other specified severity; L97.429 Non-pressure chronic ulcer of left heel and midfoot with unspecified severity; L97.419 Non-pressure chronic ulcer of right heel and midfoot with unspecified severity; L97.519 Non-pressure chronic ulcer of other part of right foot with unspecified severity; S90.421A Blister (nonthermal), right great toe, initial encounter; I87.2 Venous insufficiency (chronic) (peripheral); I89.0 Lymphedema, not elsewhere classified; I73.89 Other specified peripheral vascular diseases; R60.0 Localized edema; I10 Essential (primary) hypertension; M81.0 Age-related osteoporosis without current pathological fracture; I48.2 Chronic atrial fibrillation; E66.01 Morbid (severe) obesity due to excess calories

== ENCOUNTER → 2019-02-20 | Outpatient (CLI) | payer OTHER | LOC: WCC 14:00 | PROVIDERS: ATTEND Family Medicine | DX: E11.621 Type 2 diabetes mellitus with foot ulcer (principal); E11.65 Type 2 diabetes mellitus with hyperglycemia; E11.40 Type 2 diabetes mellitus with diabetic neuropathy, unspecified; L97.428 Non-pressure chronic ulcer of left heel and midfoot with other specified severity; L97.429 Non-pressure chronic ulcer of left heel and midfoot with unspecified severity; L97.519 Non-pressure chronic ulcer of other part of right foot with unspecified severity; L97.419 Non-pressure chronic ulcer of right heel and midfoot with unspecified severity; I73.89 Other specified peripheral vascular diseases; I87.2 Venous insufficiency (chronic) (peripheral); I89.0 Lymphedema, not elsewhere classified; R60.0 Localized edema; S90.421A Blister (nonthermal), right great toe, initial encounter; I10 Essential (primary) hypertension; E66.01 Morbid (severe) obesity due to excess calories; I48.2 Chronic atrial fibrillation; M18.0 Bilateral primary osteoarthritis of first carpometacarpal joints ==

== ENCOUNTER → 2019-03-13 | Outpatient (CLI) | payer OTHER | LOC: WCC 13:51 | PROVIDERS: ATTEND Podiatrist Foot & Ankle Surgery | DX: E11.621 Type 2 diabetes mellitus with foot ulcer (principal); E11.40 Type 2 diabetes mellitus with diabetic neuropathy, unspecified; E11.65 Type 2 diabetes mellitus with hyperglycemia; L97.428 Non-pressure chronic ulcer of left heel and midfoot with other specified severity; L97.519 Non-pressure chronic ulcer of other part of right foot with unspecified severity; S90.421A Blister (nonthermal), right great toe, initial encounter; I73.89 Other specified peripheral vascular diseases; I87.2 Venous insufficiency (chronic) (peripheral); I89.0 Lymphedema, not elsewhere classified; R60.0 Localized edema; I10 Essential (primary) hypertension; E66.01 Morbid (severe) obesity due to excess calories; I48.2 Chronic atrial fibrillation; M81.0 Age-related osteoporosis without current pathological fracture ==

== ENCOUNTER → 2019-03-15 | Outpatient (CLI) | payer OTHER ==
[~2019-03-15] MED LIST changes: +MINERAL OIL/PETROLAT/GLYCERI 6OZ BTL ONE
== END ==
LOC: WCC 11:34
PROVIDERS: ATTEND Family Medicine
DX: E11.621 Type 2 diabetes mellitus with foot ulcer (principal); E11.65 Type 2 diabetes mellitus with hyperglycemia; E11.40 Type 2 diabetes mellitus with diabetic neuropathy, unspecified; L97.519 Non-pressure chronic ulcer of other part of right foot with unspecified severity; L97.428 Non-pressure chronic ulcer of left heel and midfoot with other specified severity; I87.2 Venous insufficiency (chronic) (peripheral); I73.89 Other specified peripheral vascular diseases; I89.0 Lymphedema, not elsewhere classified; S90.421A Blister (nonthermal), right great toe, initial encounter; R60.0 Localized edema; I10 Essential (primary) hypertension; M81.0 Age-related osteoporosis without current pathological fracture; I48.2 Chronic atrial fibrillation; E66.01 Morbid (severe) obesity due to excess calories
CPT/HCPCS: 36415; 82948

== ENCOUNTER → 2019-03-20 | Outpatient (CLI) | payer OTHER ==
[~2019-03-20] MED LIST changes: -MINERAL OIL/PETROLAT/GLYCERI 6OZ BTL ONE
== END ==
LOC: WCC 14:39
PROVIDERS: ATTEND Family Medicine
DX: E11.621 Type 2 diabetes mellitus with foot ulcer (principal); E11.65 Type 2 diabetes mellitus with hyperglycemia; E11.40 Type 2 diabetes mellitus with diabetic neuropathy, unspecified; L97.428 Non-pressure chronic ulcer of left heel and midfoot with other specified severity; L97.519 Non-pressure chronic ulcer of other part of right foot with unspecified severity; S90.421A Blister (nonthermal), right great toe, initial encounter; I89.0 Lymphedema, not elsewhere classified; I73.89 Other specified peripheral vascular diseases; I87.2 Venous insufficiency (chronic) (peripheral); R60.0 Localized edema; I10 Essential (primary) hypertension; M81.0 Age-related osteoporosis without current pathological fracture; I48.2 Chronic atrial fibrillation; E66.01 Morbid (severe) obesity due to excess calories

== ENCOUNTER → 2019-03-22 | Outpatient (CLI) | payer OTHER | LOC: WCC 15:03 | PROVIDERS: ATTEND Family Medicine | DX: E11.621 Type 2 diabetes mellitus with foot ulcer (principal); E11.65 Type 2 diabetes mellitus with hyperglycemia; E11.40 Type 2 diabetes mellitus with diabetic neuropathy, unspecified; L97.428 Non-pressure chronic ulcer of left heel and midfoot with other specified severity; L97.519 Non-pressure chronic ulcer of other part of right foot with unspecified severity; S90.421A Blister (nonthermal), right great toe, initial encounter; I87.2 Venous insufficiency (chronic) (peripheral); R60.0 Localized edema; I89.0 Lymphedema, not elsewhere classified; I73.89 Other specified peripheral vascular diseases; I10 Essential (primary) hypertension; M81.0 Age-related osteoporosis without current pathological fracture; I48.2 Chronic atrial fibrillation; E66.01 Morbid (severe) obesity due to excess calories ==

== ENCOUNTER → 2019-04-03 | Outpatient (CLI) | payer OTHER | LOC: WCC 15:11 | PROVIDERS: ATTEND Podiatrist Foot & Ankle Surgery | DX: E11.621 Type 2 diabetes mellitus with foot ulcer (principal); E11.40 Type 2 diabetes mellitus with diabetic neuropathy, unspecified; E11.65 Type 2 diabetes mellitus with hyperglycemia; L97.428 Non-pressure chronic ulcer of left heel and midfoot with other specified severity; R60.0 Localized edema; I73.89 Other specified peripheral vascular diseases; I87.2 Venous insufficiency (chronic) (peripheral); I89.0 Lymphedema, not elsewhere classified; S90.421A Blister (nonthermal), right great toe, initial encounter; I10 Essential (primary) hypertension; E66.01 Morbid (severe) obesity due to excess calories; I48.2 Chronic atrial fibrillation; M81.0 Age-related osteoporosis without current pathological fracture | CPT/HCPCS: 87071; 87075; 87205 ==

== ENCOUNTER → 2019-04-18 | Outpatient (CLI) | payer OTHER ==
[~2019-04-18] MED LIST changes: +COLLAGENASE OINTMENT 30 GM TUBE ONE; +MINERAL OIL/PETROLAT/GLYCERI 6OZ BTL ONE; +MUPIROCIN 2% OINT 22 GM TUBE ONE
== END ==
LOC: WCC 12:36
PROVIDERS: ATTEND Family Medicine
DX: E11.621 Type 2 diabetes mellitus with foot ulcer (principal); E11.65 Type 2 diabetes mellitus with hyperglycemia; E11.40 Type 2 diabetes mellitus with diabetic neuropathy, unspecified; L97.428 Non-pressure chronic ulcer of left heel and midfoot with other specified severity; I87.2 Venous insufficiency (chronic) (peripheral); R60.0 Localized edema; I89.0 Lymphedema, not elsewhere classified; S90.421A Blister (nonthermal), right great toe, initial encounter; I73.89 Other specified peripheral vascular diseases; I10 Essential (primary) hypertension; M81.0 Age-related osteoporosis without current pathological fracture; I48.2 Chronic atrial fibrillation; E66.01 Morbid (severe) obesity due to excess calories

== ENCOUNTER → 2019-04-24 | Outpatient (CLI) | payer OTHER ==
[~2019-04-24] MED LIST changes: -COLLAGENASE OINTMENT 30 GM TUBE ONE; -MINERAL OIL/PETROLAT/GLYCERI 6OZ BTL ONE; -MUPIROCIN 2% OINT 22 GM TUBE ONE
== END ==
LOC: EDSEX → WCC 13:13
PROVIDERS: ATTEND Podiatrist Foot & Ankle Surgery
DX: E11.621 Type 2 diabetes mellitus with foot ulcer (principal); E11.40 Type 2 diabetes mellitus with diabetic neuropathy, unspecified; E11.65 Type 2 diabetes mellitus with hyperglycemia; L97.428 Non-pressure chronic ulcer of left heel and midfoot with other specified severity; R60.0 Localized edema; E66.01 Morbid (severe) obesity due to excess calories; I10 Essential (primary) hypertension; I48.2 Chronic atrial fibrillation; I73.89 Other specified peripheral vascular diseases; I87.2 Venous insufficiency (chronic) (peripheral); I89.0 Lymphedema, not elsewhere classified; M81.0 Age-related osteoporosis without current pathological fracture; S90.421A Blister (nonthermal), right great toe, initial encounter

== ENCOUNTER → 2019-05-09 | Outpatient (CLI) | payer OTHER | LOC: EDSEX → WCC 03:00 | PROVIDERS: ATTEND Family Medicine | DX: E11.621 Type 2 diabetes mellitus with foot ulcer (principal); E11.65 Type 2 diabetes mellitus with hyperglycemia; E11.40 Type 2 diabetes mellitus with diabetic neuropathy, unspecified; L97.428 Non-pressure chronic ulcer of left heel and midfoot with other specified severity; I87.2 Venous insufficiency (chronic) (peripheral); I89.0 Lymphedema, not elsewhere classified; I73.89 Other specified peripheral vascular diseases; R60.0 Localized edema; S90.421A Blister (nonthermal), right great toe, initial encounter; I10 Essential (primary) hypertension; M81.0 Age-related osteoporosis without current pathological fracture; I48.2 Chronic atrial fibrillation; E66.01 Morbid (severe) obesity due to excess calories ==

== ENCOUNTER → 2019-05-16 | Outpatient (CLI) | payer OTHER ==
[~2019-05-16] MED LIST changes: +MINERAL OIL/PETROLAT/GLYCERI 6OZ BTL ONE
== END ==
LOC: EDSEX → WCC 13:42
PROVIDERS: ATTEND Family Medicine
DX: E11.621 Type 2 diabetes mellitus with foot ulcer (principal); E11.65 Type 2 diabetes mellitus with hyperglycemia; E11.40 Type 2 diabetes mellitus with diabetic neuropathy, unspecified; L97.428 Non-pressure chronic ulcer of left heel and midfoot with other specified severity; S90.421A Blister (nonthermal), right great toe, initial encounter; I87.2 Venous insufficiency (chronic) (peripheral); I73.89 Other specified peripheral vascular diseases; R60.0 Localized edema; I89.0 Lymphedema, not elsewhere classified; I10 Essential (primary) hypertension; M81.0 Age-related osteoporosis without current pathological fracture; I48.2 Chronic atrial fibrillation; E66.01 Morbid (severe) obesity due to excess calories

== ENCOUNTER → 2019-05-22 | Outpatient (CLI) | payer OTHER ==
[~2019-05-22] MED LIST changes: -MINERAL OIL/PETROLAT/GLYCERI 6OZ BTL ONE
== END ==
LOC: EDSEX → WCC 14:56
PROVIDERS: ATTEND Family Medicine
DX: E11.40 Type 2 diabetes mellitus with diabetic neuropathy, unspecified (principal); E11.65 Type 2 diabetes mellitus with hyperglycemia; E11.621 Type 2 diabetes mellitus with foot ulcer; L97.428 Non-pressure chronic ulcer of left heel and midfoot with other specified severity; R60.0 Localized edema; I73.89 Other specified peripheral vascular diseases; I87.2 Venous insufficiency (chronic) (peripheral); I89.0 Lymphedema, not elsewhere classified; S90.421A Blister (nonthermal), right great toe, initial encounter; I10 Essential (primary) hypertension; E66.01 Morbid (severe) obesity due to excess calories; I48.2 Chronic atrial fibrillation; M81.0 Age-related osteoporosis without current pathological fracture

== ENCOUNTER → 2019-05-30 | Outpatient (CLI) | payer OTHER | LOC: WCC 15:12 | PROVIDERS: ATTEND Family Medicine | DX: E11.621 Type 2 diabetes mellitus with foot ulcer (principal); E11.40 Type 2 diabetes mellitus with diabetic neuropathy, unspecified; E11.65 Type 2 diabetes mellitus with hyperglycemia; I87.2 Venous insufficiency (chronic) (peripheral); R60.0 Localized edema; I89.0 Lymphedema, not elsewhere classified; I73.89 Other specified peripheral vascular diseases; S90.421A Blister (nonthermal), right great toe, initial encounter; I10 Essential (primary) hypertension; I48.2 Chronic atrial fibrillation; M81.0 Age-related osteoporosis without current pathological fracture; E66.01 Morbid (severe) obesity due to excess calories ==

== ENCOUNTER → 2019-06-06 | Outpatient (CLI) | payer OTHER | LOC: WCC 10:50 | PROVIDERS: ATTEND Family Medicine | DX: E11.621 Type 2 diabetes mellitus with foot ulcer (principal); E11.65 Type 2 diabetes mellitus with hyperglycemia; E11.40 Type 2 diabetes mellitus with diabetic neuropathy, unspecified; I87.2 Venous insufficiency (chronic) (peripheral); I89.0 Lymphedema, not elsewhere classified; I73.89 Other specified peripheral vascular diseases; R60.0 Localized edema; S90.421A Blister (nonthermal), right great toe, initial encounter; S90.424A Blister (nonthermal), right lesser toe(s), initial encounter; I10 Essential (primary) hypertension; W22.03XA Walked into furniture, initial encounter; M81.0 Age-related osteoporosis without current pathological fracture; I48.2 Chronic atrial fibrillation; E66.01 Morbid (severe) obesity due to excess calories ==

== ENCOUNTER → 2019-06-19 | Outpatient (CLI) | payer OTHER ==
[~2019-06-19] MED LIST changes: +MINERAL OIL/PETROLAT/GLYCERI 6OZ BTL ONE
== END ==
LOC: WCC 13:46
PROVIDERS: ATTEND Family Medicine
DX: E11.40 Type 2 diabetes mellitus with diabetic neuropathy, unspecified (principal); E11.65 Type 2 diabetes mellitus with hyperglycemia; E11.621 Type 2 diabetes mellitus with foot ulcer; I73.89 Other specified peripheral vascular diseases; I87.2 Venous insufficiency (chronic) (peripheral); R60.0 Localized edema; I89.0 Lymphedema, not elsewhere classified; S90.421A Blister (nonthermal), right great toe, initial encounter; S90.424A Blister (nonthermal), right lesser toe(s), initial encounter; E66.01 Morbid (severe) obesity due to excess calories; I48.2 Chronic atrial fibrillation; M81.0 Age-related osteoporosis without current pathological fracture; W22.03XA Walked into furniture, initial encounter

== ENCOUNTER → 2019-06-22 | Outpatient (CLI) | payer OTHER ==
[~2019-06-22] MED LIST changes: -MINERAL OIL/PETROLAT/GLYCERI 6OZ BTL ONE
== END ==
LOC: WCC 11:11
PROVIDERS: ATTEND Podiatrist Foot & Ankle Surgery
DX: E11.621 Type 2 diabetes mellitus with foot ulcer (principal); E11.40 Type 2 diabetes mellitus with diabetic neuropathy, unspecified; E11.65 Type 2 diabetes mellitus with hyperglycemia; S90.421A Blister (nonthermal), right great toe, initial encounter; I73.89 Other specified peripheral vascular diseases; I87.2 Venous insufficiency (chronic) (peripheral); R60.0 Localized edema; I89.0 Lymphedema, not elsewhere classified; I10 Essential (primary) hypertension; W22.03XA Walked into furniture, initial encounter; M81.0 Age-related osteoporosis without current pathological fracture; I48.2 Chronic atrial fibrillation; E66.01 Morbid (severe) obesity due to excess calories

== ENCOUNTER → 2019-07-13 | Outpatient (CLI) | payer OTHER | LOC: WCC 10:38 | PROVIDERS: ATTEND Podiatrist Foot & Ankle Surgery | DX: E11.621 Type 2 diabetes mellitus with foot ulcer (principal); E11.40 Type 2 diabetes mellitus with diabetic neuropathy, unspecified; E11.65 Type 2 diabetes mellitus with hyperglycemia; S90.421A Blister (nonthermal), right great toe, initial encounter; R60.0 Localized edema; I73.89 Other specified peripheral vascular diseases; I89.0 Lymphedema, not elsewhere classified; I87.2 Venous insufficiency (chronic) (peripheral); I10 Essential (primary) hypertension; W22.03XA Walked into furniture, initial encounter; M81.0 Age-related osteoporosis without current pathological fracture; I48.2 Chronic atrial fibrillation; E66.01 Morbid (severe) obesity due to excess calories ==

== ENCOUNTER → 2019-07-18 | Outpatient (CLI) | payer OTHER | LOC: WCC 14:09 | PROVIDERS: ATTEND Podiatrist Foot & Ankle Surgery | DX: E11.621 Type 2 diabetes mellitus with foot ulcer (principal); E11.65 Type 2 diabetes mellitus with hyperglycemia; E11.40 Type 2 diabetes mellitus with diabetic neuropathy, unspecified; S90.421A Blister (nonthermal), right great toe, initial encounter; R60.0 Localized edema; W22.03XA Walked into furniture, initial encounter; I87.2 Venous insufficiency (chronic) (peripheral); I89.0 Lymphedema, not elsewhere classified; I73.89 Other specified peripheral vascular diseases; I10 Essential (primary) hypertension; M81.0 Age-related osteoporosis without current pathological fracture; I48.2 Chronic atrial fibrillation; E66.01 Morbid (severe) obesity due to excess calories ==

== ENCOUNTER → 2019-08-14 | Outpatient (CLI) | payer OTHER | LOC: WCC 12:53 | PROVIDERS: ATTEND Podiatrist Foot & Ankle Surgery | DX: E11.621 Type 2 diabetes mellitus with foot ulcer (principal); E11.65 Type 2 diabetes mellitus with hyperglycemia; E11.40 Type 2 diabetes mellitus with diabetic neuropathy, unspecified; L97.521 Non-pressure chronic ulcer of other part of left foot limited to breakdown of skin; L97.511 Non-pressure chronic ulcer of other part of right foot limited to breakdown of skin; I73.89 Other specified peripheral vascular diseases; I87.2 Venous insufficiency (chronic) (peripheral); I89.0 Lymphedema, not elsewhere classified; R60.0 Localized edema; S90.421A Blister (nonthermal), right great toe, initial encounter; I10 Essential (primary) hypertension; E66.01 Morbid (severe) obesity due to excess calories; I48.2 Chronic atrial fibrillation; M81.0 Age-related osteoporosis without current pathological fracture; W22.03XA Walked into furniture, initial encounter ==

== ENCOUNTER → 2019-09-18 | Outpatient (CLI) | payer OTHER ==
[~2019-09-18] MED LIST changes: +MINERAL OIL/PETROLAT/GLYCERI 6OZ BTL ONE
== END ==
LOC: WCC 15:03
PROVIDERS: ATTEND Podiatrist Foot & Ankle Surgery
DX: E11.621 Type 2 diabetes mellitus with foot ulcer (principal); E11.40 Type 2 diabetes mellitus with diabetic neuropathy, unspecified; E11.65 Type 2 diabetes mellitus with hyperglycemia; L97.521 Non-pressure chronic ulcer of other part of left foot limited to breakdown of skin; L97.511 Non-pressure chronic ulcer of other part of right foot limited to breakdown of skin; R60.0 Localized edema; I89.0 Lymphedema, not elsewhere classified; I87.2 Venous insufficiency (chronic) (peripheral); I73.89 Other specified peripheral vascular diseases; S90.421A Blister (nonthermal), right great toe, initial encounter; I10 Essential (primary) hypertension; I48.20 Chronic atrial fibrillation, unspecified; M81.0 Age-related osteoporosis without current pathological fracture; E66.01 Morbid (severe) obesity due to excess calories; W19.XXXA Unspecified fall, initial encounter

== ENCOUNTER → 2019-10-06 | Outpatient (CLI) | payer OTHER ==
[~2019-10-06] MED LIST changes: -MINERAL OIL/PETROLAT/GLYCERI 6OZ BTL ONE
== END ==
LOC: WCC 14:46
PROVIDERS: ATTEND Podiatrist Foot & Ankle Surgery
DX: E11.621 Type 2 diabetes mellitus with foot ulcer (principal); E11.40 Type 2 diabetes mellitus with diabetic neuropathy, unspecified; E11.65 Type 2 diabetes mellitus with hyperglycemia; L97.521 Non-pressure chronic ulcer of other part of left foot limited to breakdown of skin; L97.511 Non-pressure chronic ulcer of other part of right foot limited to breakdown of skin; I87.2 Venous insufficiency (chronic) (peripheral); I89.0 Lymphedema, not elsewhere classified; S90.421A Blister (nonthermal), right great toe, initial encounter; R60.0 Localized edema; I10 Essential (primary) hypertension; W19.XXXA Unspecified fall, initial encounter; M81.0 Age-related osteoporosis without current pathological fracture; I73.89 Other specified peripheral vascular diseases; I48.20 Chronic atrial fibrillation, unspecified; E66.01 Morbid (severe) obesity due to excess calories

== ENCOUNTER → 2019-10-20 | Outpatient (CLI) | payer OTHER ==
[~2019-10-20] MED LIST changes: +MINERAL OIL/PETROLAT/GLYCERI 6OZ BTL ONE
== END ==
LOC: WCC 14:08
PROVIDERS: ATTEND Podiatrist Foot & Ankle Surgery
DX: E11.621 Type 2 diabetes mellitus with foot ulcer (principal); E11.40 Type 2 diabetes mellitus with diabetic neuropathy, unspecified; E11.65 Type 2 diabetes mellitus with hyperglycemia; L97.521 Non-pressure chronic ulcer of other part of left foot limited to breakdown of skin; L97.511 Non-pressure chronic ulcer of other part of right foot limited to breakdown of skin; I87.2 Venous insufficiency (chronic) (peripheral); I89.0 Lymphedema, not elsewhere classified; I73.89 Other specified peripheral vascular diseases; S90.421A Blister (nonthermal), right great toe, initial encounter; R60.0 Localized edema; I10 Essential (primary) hypertension; I48.20 Chronic atrial fibrillation, unspecified; M81.0 Age-related osteoporosis without current pathological fracture; E66.01 Morbid (severe) obesity due to excess calories; W19.XXXA Unspecified fall, initial encounter

== ENCOUNTER → 2019-11-01 | Outpatient (CLI) | payer OTHER ==
[~2019-11-01] MED LIST changes: -MINERAL OIL/PETROLAT/GLYCERI 6OZ BTL ONE
== END ==
LOC: WCC 15:52
PROVIDERS: ATTEND Podiatrist Foot & Ankle Surgery
DX: E11.621 Type 2 diabetes mellitus with foot ulcer (principal); E11.40 Type 2 diabetes mellitus with diabetic neuropathy, unspecified; E11.65 Type 2 diabetes mellitus with hyperglycemia; L97.521 Non-pressure chronic ulcer of other part of left foot limited to breakdown of skin; L97.511 Non-pressure chronic ulcer of other part of right foot limited to breakdown of skin; I87.2 Venous insufficiency (chronic) (peripheral); I89.0 Lymphedema, not elsewhere classified; I73.89 Other specified peripheral vascular diseases; S90.421A Blister (nonthermal), right great toe, initial encounter; R60.0 Localized edema; I10 Essential (primary) hypertension; W19.XXXA Unspecified fall, initial encounter; M81.0 Age-related osteoporosis without current pathological fracture; I48.20 Chronic atrial fibrillation, unspecified; E66.01 Morbid (severe) obesity due to excess calories

== ENCOUNTER → 2021-10-21 | Day surgery (SDC) | payer BC ==
[~2021-10-21] VITALS: Ht 170.2 cm; Wt 134.7 kg
[~2021-10-21] MED LIST changes: +ALLOPURINOL300 MG PO; +BENZOCAINE 20% SPR 60 ML CAN ONE; +CALCIUM PO; +CELEXA20 MG PO; +COREG6.25 MG PO; +FENTANYL CITRATE/PF 100MCG/2 ML INJ ONE; +LOSARTAN POTAS100 MG PO; +MIDAZOLAM HCL 2 MG/2 ML VIAL ONE; +OMEPRAZOLE40 MG PO; +OZEMPIC1 MG/0.71 SQ; +SODIUM CHLORIDE 0.9% 1000ML 1,000 ML ONE; +TRESIBA100 UNIT/1 SQ; +TUMERIC PO; +VITAMIN D PO; +XARELTO15 MG PO
[2021-10-21 12:20] VITALS: BP 97/78
[2021-10-21 15:00] VITALS: BP 104/76
[2021-10-21 15:15] VITALS: BP 104/57
== END | disposition home or self-care (01) ==
LOC: CATH LAB 11:28
PROVIDERS: ATTEND Internal Medicine Interventional Cardiology
DX: I48.91 Unspecified atrial fibrillation (principal); I07.1 Rheumatic tricuspid insufficiency; I37.1 Nonrheumatic pulmonary valve insufficiency; I70.219 Atherosclerosis of native arteries of extremities with intermittent claudication, unspecified extremity; F17.210 Nicotine dependence, cigarettes, uncomplicated; Z79.82 Long term (current) use of aspirin; Z79.02 Long term (current) use of antithrombotics/antiplatelets; Z79.4 Long term (current) use of insulin; Z68.41 Body mass index [BMI] 40.0-44.9, adult; Z91.81 History of falling; Z86.718 Personal history of other venous thrombosis and embolism
CPT/HCPCS: 75894; 92960; 93307; 93312; 93320; 93325; J2250; J3010; J7030; 99152

== ENCOUNTER → 2022-07-14 | Outpatient (CLI) | payer BC ==
[~2022-07-14] MED LIST changes: -BENZOCAINE 20% SPR 60 ML CAN ONE; -FENTANYL CITRATE/PF 100MCG/2 ML INJ ONE; -MIDAZOLAM HCL 2 MG/2 ML VIAL ONE; -SODIUM CHLORIDE 0.9% 1000ML 1,000 ML ONE
== END ==
LOC: WCC 08:18
PROVIDERS: ATTEND Podiatrist Foot & Ankle Surgery
DX: E11.621 Type 2 diabetes mellitus with foot ulcer (principal); E11.40 Type 2 diabetes mellitus with diabetic neuropathy, unspecified; E11.65 Type 2 diabetes mellitus with hyperglycemia; L97.519 Non-pressure chronic ulcer of other part of right foot with unspecified severity; L97.529 Non-pressure chronic ulcer of other part of left foot with unspecified severity; L03.115 Cellulitis of right lower limb; L03.116 Cellulitis of left lower limb; I87.2 Venous insufficiency (chronic) (peripheral); I89.0 Lymphedema, not elsewhere classified; S90.421A Blister (nonthermal), right great toe, initial encounter; R60.0 Localized edema; I73.89 Other specified peripheral vascular diseases; I10 Essential (primary) hypertension; I48.20 Chronic atrial fibrillation, unspecified; I50.9 Heart failure, unspecified; M81.0 Age-related osteoporosis without current pathological fracture; E66.01 Morbid (severe) obesity due to excess calories

== ENCOUNTER → 2022-07-17 | Outpatient (CLI) | payer BC ==
[~2022-07-17] MED LIST changes: +SILVER SULFADIAZINE 50GM CREAM ONE
== END ==
LOC: WCC 12:45
PROVIDERS: ATTEND Podiatrist Foot & Ankle Surgery
DX: E11.621 Type 2 diabetes mellitus with foot ulcer (principal); E11.40 Type 2 diabetes mellitus with diabetic neuropathy, unspecified; E11.65 Type 2 diabetes mellitus with hyperglycemia; L03.116 Cellulitis of left lower limb; L03.115 Cellulitis of right lower limb; L97.529 Non-pressure chronic ulcer of other part of left foot with unspecified severity; L97.519 Non-pressure chronic ulcer of other part of right foot with unspecified severity; I87.2 Venous insufficiency (chronic) (peripheral); I89.0 Lymphedema, not elsewhere classified; R60.0 Localized edema; S90.421A Blister (nonthermal), right great toe, initial encounter; I73.89 Other specified peripheral vascular diseases; I10 Essential (primary) hypertension; I48.20 Chronic atrial fibrillation, unspecified; I50.9 Heart failure, unspecified; M81.0 Age-related osteoporosis without current pathological fracture; E66.01 Morbid (severe) obesity due to excess calories

== ENCOUNTER → 2022-07-21 | Outpatient (CLI) | payer BC ==
[~2022-07-21] MED LIST changes: -SILVER SULFADIAZINE 50GM CREAM ONE
== END ==
LOC: WCC 15:12
PROVIDERS: ATTEND Podiatrist Foot & Ankle Surgery
DX: E11.621 Type 2 diabetes mellitus with foot ulcer (principal); E11.40 Type 2 diabetes mellitus with diabetic neuropathy, unspecified; E11.65 Type 2 diabetes mellitus with hyperglycemia; L03.116 Cellulitis of left lower limb; L03.115 Cellulitis of right lower limb; L97.529 Non-pressure chronic ulcer of other part of left foot with unspecified severity; L97.519 Non-pressure chronic ulcer of other part of right foot with unspecified severity; I87.2 Venous insufficiency (chronic) (peripheral); I89.0 Lymphedema, not elsewhere classified; R60.0 Localized edema; S90.421A Blister (nonthermal), right great toe, initial encounter; I73.89 Other specified peripheral vascular diseases; I10 Essential (primary) hypertension; I50.9 Heart failure, unspecified; M81.0 Age-related osteoporosis without current pathological fracture; E66.01 Morbid (severe) obesity due to excess calories

== ENCOUNTER → 2022-07-24 | Outpatient (CLI) | payer BC | LOC: WCC 01:50 | PROVIDERS: ATTEND Podiatrist Foot & Ankle Surgery | DX: E11.621 Type 2 diabetes mellitus with foot ulcer (principal); E11.40 Type 2 diabetes mellitus with diabetic neuropathy, unspecified; E11.65 Type 2 diabetes mellitus with hyperglycemia; L03.116 Cellulitis of left lower limb; L03.115 Cellulitis of right lower limb; L97.529 Non-pressure chronic ulcer of other part of left foot with unspecified severity; L97.519 Non-pressure chronic ulcer of other part of right foot with unspecified severity; I89.0 Lymphedema, not elsewhere classified; I87.2 Venous insufficiency (chronic) (peripheral); R60.0 Localized edema; S90.421A Blister (nonthermal), right great toe, initial encounter; I73.89 Other specified peripheral vascular diseases; I50.9 Heart failure, unspecified; I10 Essential (primary) hypertension; I48.20 Chronic atrial fibrillation, unspecified; M81.0 Age-related osteoporosis without current pathological fracture; E66.01 Morbid (severe) obesity due to excess calories ==

== ENCOUNTER → 2022-07-28 | Outpatient (CLI) | payer BC | LOC: WCC 13:52 | PROVIDERS: ATTEND Podiatrist Foot & Ankle Surgery | DX: E11.621 Type 2 diabetes mellitus with foot ulcer (principal); E11.40 Type 2 diabetes mellitus with diabetic neuropathy, unspecified; E11.65 Type 2 diabetes mellitus with hyperglycemia; L97.519 Non-pressure chronic ulcer of other part of right foot with unspecified severity; L97.529 Non-pressure chronic ulcer of other part of left foot with unspecified severity; L03.115 Cellulitis of right lower limb; L03.116 Cellulitis of left lower limb; I87.2 Venous insufficiency (chronic) (peripheral); I89.0 Lymphedema, not elsewhere classified; I73.89 Other specified peripheral vascular diseases; R60.0 Localized edema; S90.421A Blister (nonthermal), right great toe, initial encounter; I10 Essential (primary) hypertension; I50.9 Heart failure, unspecified; I48.20 Chronic atrial fibrillation, unspecified; M81.0 Age-related osteoporosis without current pathological fracture; E66.01 Morbid (severe) obesity due to excess calories ==

== ENCOUNTER → 2022-08-04 | Outpatient (CLI) | payer BC | LOC: WCC 12:05 | PROVIDERS: ATTEND Podiatrist Foot & Ankle Surgery | DX: E11.621 Type 2 diabetes mellitus with foot ulcer (principal); E11.40 Type 2 diabetes mellitus with diabetic neuropathy, unspecified; E11.65 Type 2 diabetes mellitus with hyperglycemia; L97.519 Non-pressure chronic ulcer of other part of right foot with unspecified severity; L97.528 Non-pressure chronic ulcer of other part of left foot with other specified severity; L03.115 Cellulitis of right lower limb; L03.116 Cellulitis of left lower limb; S81.801A Unspecified open wound, right lower leg, initial encounter; S81.802A Unspecified open wound, left lower leg, initial encounter; I87.2 Venous insufficiency (chronic) (peripheral); I89.0 Lymphedema, not elsewhere classified; R60.0 Localized edema; S90.421A Blister (nonthermal), right great toe, initial encounter; I73.89 Other specified peripheral vascular diseases; I10 Essential (primary) hypertension; I50.9 Heart failure, unspecified; M81.0 Age-related osteoporosis without current pathological fracture; X58.XXXA Exposure to other specified factors, initial encounter; E66.01 Morbid (severe) obesity due to excess calories ==

== ENCOUNTER → 2022-08-07 | Outpatient (CLI) | payer BC | LOC: WCC 15:53 | PROVIDERS: ATTEND Podiatrist Foot & Ankle Surgery | DX: E11.621 Type 2 diabetes mellitus with foot ulcer (principal); E11.40 Type 2 diabetes mellitus with diabetic neuropathy, unspecified; E11.65 Type 2 diabetes mellitus with hyperglycemia; L97.529 Non-pressure chronic ulcer of other part of left foot with unspecified severity; L97.519 Non-pressure chronic ulcer of other part of right foot with unspecified severity; S81.802A Unspecified open wound, left lower leg, initial encounter; S81.801A Unspecified open wound, right lower leg, initial encounter; I89.0 Lymphedema, not elsewhere classified; I87.2 Venous insufficiency (chronic) (peripheral); R60.0 Localized edema; M81.0 Age-related osteoporosis without current pathological fracture; X58.XXXA Exposure to other specified factors, initial encounter ==

== ENCOUNTER → 2022-08-11 | Outpatient (CLI) | payer BC | LOC: WCC 11:48 | PROVIDERS: ATTEND Podiatrist Foot & Ankle Surgery | DX: E11.621 Type 2 diabetes mellitus with foot ulcer (principal); E11.40 Type 2 diabetes mellitus with diabetic neuropathy, unspecified; E11.65 Type 2 diabetes mellitus with hyperglycemia; L97.519 Non-pressure chronic ulcer of other part of right foot with unspecified severity; L97.529 Non-pressure chronic ulcer of other part of left foot with unspecified severity; L03.115 Cellulitis of right lower limb; L03.116 Cellulitis of left lower limb; S81.801A Unspecified open wound, right lower leg, initial encounter; S81.802A Unspecified open wound, left lower leg, initial encounter; I87.2 Venous insufficiency (chronic) (peripheral); I89.0 Lymphedema, not elsewhere classified; R60.0 Localized edema; S90.421A Blister (nonthermal), right great toe, initial encounter; I73.89 Other specified peripheral vascular diseases; I10 Essential (primary) hypertension; I50.9 Heart failure, unspecified; I48.20 Chronic atrial fibrillation, unspecified; M81.0 Age-related osteoporosis without current pathological fracture; E66.01 Morbid (severe) obesity due to excess calories; X58.XXXA Exposure to other specified factors, initial encounter ==

== ENCOUNTER → 2022-09-01 | Outpatient (CLI) | payer BC, OTHER ==
[~2022-09-01] MED LIST changes: +MINERAL OIL/PETROLAT/GLYCERI 6OZ BTL ONE; +SILVER SULFADIAZINE 50GM CREAM ONE; +TRYPSIN/BALSAM PERU/CASTOR OIL ONE
== END ==
LOC: WCC 08:27
PROVIDERS: ATTEND Podiatrist Foot & Ankle Surgery
DX: E11.621 Type 2 diabetes mellitus with foot ulcer (principal); E11.40 Type 2 diabetes mellitus with diabetic neuropathy, unspecified; E11.65 Type 2 diabetes mellitus with hyperglycemia; L97.511 Non-pressure chronic ulcer of other part of right foot limited to breakdown of skin; L97.519 Non-pressure chronic ulcer of other part of right foot with unspecified severity; L97.529 Non-pressure chronic ulcer of other part of left foot with unspecified severity; L03.115 Cellulitis of right lower limb; L03.116 Cellulitis of left lower limb; S81.801A Unspecified open wound, right lower leg, initial encounter; I89.0 Lymphedema, not elsewhere classified; I87.2 Venous insufficiency (chronic) (peripheral); I73.89 Other specified peripheral vascular diseases; R60.0 Localized edema; S90.421A Blister (nonthermal), right great toe, initial encounter; I10 Essential (primary) hypertension; I50.9 Heart failure, unspecified; M81.0 Age-related osteoporosis without current pathological fracture; E66.01 Morbid (severe) obesity due to excess calories; X58.XXXA Exposure to other specified factors, initial encounter

== ENCOUNTER → 2022-09-08 | Outpatient (CLI) | payer OTHER ==
[~2022-09-08] MED LIST changes: -MINERAL OIL/PETROLAT/GLYCERI 6OZ BTL ONE; -SILVER SULFADIAZINE 50GM CREAM ONE; -TRYPSIN/BALSAM PERU/CASTOR OIL ONE
== END ==
LOC: WCC 10:00
PROVIDERS: ATTEND Podiatrist Foot & Ankle Surgery
DX: E11.621 Type 2 diabetes mellitus with foot ulcer (principal); E11.40 Type 2 diabetes mellitus with diabetic neuropathy, unspecified; E11.65 Type 2 diabetes mellitus with hyperglycemia; L97.511 Non-pressure chronic ulcer of other part of right foot limited to breakdown of skin; L97.519 Non-pressure chronic ulcer of other part of right foot with unspecified severity; L97.529 Non-pressure chronic ulcer of other part of left foot with unspecified severity; L03.115 Cellulitis of right lower limb; L03.116 Cellulitis of left lower limb; R60.0 Localized edema; S81.801A Unspecified open wound, right lower leg, initial encounter; E66.01 Morbid (severe) obesity due to excess calories; I10 Essential (primary) hypertension; I48.20 Chronic atrial fibrillation, unspecified; I50.9 Heart failure, unspecified; I73.89 Other specified peripheral vascular diseases; I87.2 Venous insufficiency (chronic) (peripheral); I89.0 Lymphedema, not elsewhere classified; M81.0 Age-related osteoporosis without current pathological fracture; S90.421A Blister (nonthermal), right great toe, initial encounter; X58.XXXA Exposure to other specified factors, initial encounter

== ENCOUNTER → 2022-09-11 | Outpatient (CLI) | payer OTHER | LOC: WCC 14:39 | PROVIDERS: ATTEND Podiatrist Foot & Ankle Surgery | DX: E11.621 Type 2 diabetes mellitus with foot ulcer (principal); E11.40 Type 2 diabetes mellitus with diabetic neuropathy, unspecified; E11.65 Type 2 diabetes mellitus with hyperglycemia; L97.511 Non-pressure chronic ulcer of other part of right foot limited to breakdown of skin; S81.801A Unspecified open wound, right lower leg, initial encounter; L97.529 Non-pressure chronic ulcer of other part of left foot with unspecified severity; L97.519 Non-pressure chronic ulcer of other part of right foot with unspecified severity; L03.116 Cellulitis of left lower limb; L03.115 Cellulitis of right lower limb; R60.0 Localized edema; I89.0 Lymphedema, not elsewhere classified; I87.2 Venous insufficiency (chronic) (peripheral); S90.421A Blister (nonthermal), right great toe, initial encounter; I73.89 Other specified peripheral vascular diseases; I50.9 Heart failure, unspecified; I10 Essential (primary) hypertension; I48.20 Chronic atrial fibrillation, unspecified; X58.XXXA Exposure to other specified factors, initial encounter; M81.0 Age-related osteoporosis without current pathological fracture; E66.01 Morbid (severe) obesity due to excess calories ==

== ENCOUNTER → 2022-09-15 | Outpatient (CLI) | payer OTHER ==
[~2022-09-15] MED LIST changes: +LIDOCAINE VISC 2% SOLN 15 ML UDC ONE; +MINERAL OIL/PETROLAT/GLYCERI 6OZ BTL ONE; +SILVER SULFADIAZINE 50GM CREAM ONE
== END ==
LOC: WCC 11:00
PROVIDERS: ATTEND Podiatrist Foot & Ankle Surgery
DX: E11.621 Type 2 diabetes mellitus with foot ulcer (principal); E11.40 Type 2 diabetes mellitus with diabetic neuropathy, unspecified; E11.65 Type 2 diabetes mellitus with hyperglycemia; L97.519 Non-pressure chronic ulcer of other part of right foot with unspecified severity; L97.529 Non-pressure chronic ulcer of other part of left foot with unspecified severity; L97.511 Non-pressure chronic ulcer of other part of right foot limited to breakdown of skin; L03.115 Cellulitis of right lower limb; L03.116 Cellulitis of left lower limb; S81.801A Unspecified open wound, right lower leg, initial encounter; I73.89 Other specified peripheral vascular diseases; I87.2 Venous insufficiency (chronic) (peripheral); I89.0 Lymphedema, not elsewhere classified; R60.0 Localized edema; S90.421A Blister (nonthermal), right great toe, initial encounter; I10 Essential (primary) hypertension; I48.20 Chronic atrial fibrillation, unspecified; I50.9 Heart failure, unspecified; E66.01 Morbid (severe) obesity due to excess calories; X58.XXXA Exposure to other specified factors, initial encounter

== ENCOUNTER → 2023-08-13 | Outpatient (REF) | payer OTHER ==
[~2023-08-13] MED LIST changes: -LIDOCAINE VISC 2% SOLN 15 ML UDC ONE; -SILVER SULFADIAZINE 50GM CREAM ONE; +TRIAMCINOLONE ACET 0.1% CREAM 15 GM TUBE ONE; +TRYPSIN/BALSAM PERU/CASTOR OIL ONE
== END ==
LOC: WCC 13:37
PROVIDERS: ATTEND Podiatrist Foot & Ankle Surgery
DX: E11.621 Type 2 diabetes mellitus with foot ulcer (principal); L97.411 Non-pressure chronic ulcer of right heel and midfoot limited to breakdown of skin; S90.811A Abrasion, right foot, initial encounter; R60.0 Localized edema

== ENCOUNTER → 2023-08-17 | Outpatient (REF) | payer OTHER ==
[~2023-08-17] MED LIST changes: +COLLAGENASE OINTMENT 30 GM TUBE ONE; -TRYPSIN/BALSAM PERU/CASTOR OIL ONE
== END ==
LOC: WCC 07:42
PROVIDERS: ATTEND Podiatrist Foot & Ankle Surgery
DX: E11.621 Type 2 diabetes mellitus with foot ulcer (principal); L97.411 Non-pressure chronic ulcer of right heel and midfoot limited to breakdown of skin; S90.811A Abrasion, right foot, initial encounter; R60.0 Localized edema

== ENCOUNTER → 2023-08-31 | Outpatient (REF) | payer OTHER ==
[~2023-08-31] MED LIST changes: -COLLAGENASE OINTMENT 30 GM TUBE ONE
== END ==
LOC: WCC 08:53
PROVIDERS: ATTEND Podiatrist Foot & Ankle Surgery
DX: E11.621 Type 2 diabetes mellitus with foot ulcer (principal); L97.411 Non-pressure chronic ulcer of right heel and midfoot limited to breakdown of skin; R60.0 Localized edema

== ENCOUNTER → 2023-09-14 | Outpatient (REF) | payer OTHER ==
[~2023-09-14] MED LIST changes: +COLLAGENASE OINTMENT 30 GM TUBE ONE
== END ==
LOC: WCC 09-06 13:51
PROVIDERS: ATTEND Podiatrist Foot & Ankle Surgery
DX: E11.621 Type 2 diabetes mellitus with foot ulcer (principal); L97.411 Non-pressure chronic ulcer of right heel and midfoot limited to breakdown of skin; R60.0 Localized edema

== ENCOUNTER → 2023-09-21 | Outpatient (REF) | payer OTHER ==
[~2023-09-21] MED LIST changes: +LIDOCAINE VISC 2% SOLN 15 ML UDC ONE
== END ==
LOC: WCC 08:19
PROVIDERS: ATTEND Podiatrist Foot & Ankle Surgery
DX: E11.621 Type 2 diabetes mellitus with foot ulcer (principal); L97.411 Non-pressure chronic ulcer of right heel and midfoot limited to breakdown of skin; L97.518 Non-pressure chronic ulcer of other part of right foot with other specified severity; R60.0 Localized edema

== ENCOUNTER → 2023-09-24 | Outpatient (REF) | payer OTHER ==
[~2023-09-24] MED LIST changes: -LIDOCAINE VISC 2% SOLN 15 ML UDC ONE
== END ==
LOC: WCC 11:21
PROVIDERS: ATTEND Podiatrist Foot & Ankle Surgery
DX: E11.621 Type 2 diabetes mellitus with foot ulcer (principal); L97.411 Non-pressure chronic ulcer of right heel and midfoot limited to breakdown of skin; L97.518 Non-pressure chronic ulcer of other part of right foot with other specified severity; R60.0 Localized edema

== ENCOUNTER → 2024-05-05 | Outpatient (REF) | payer OTHER ==
[~2024-05-05] MED LIST changes: -COLLAGENASE OINTMENT 30 GM TUBE ONE; +MINERAL OIL/PETROLAT/GLYCERI 2OZ CRM ONE; -MINERAL OIL/PETROLAT/GLYCERI 6OZ BTL ONE; -TRIAMCINOLONE ACET 0.1% CREAM 15 GM TUBE ONE
== END ==
LOC: WCC 08:00
PROVIDERS: ATTEND Podiatrist Foot & Ankle Surgery
DX: E11.621 Type 2 diabetes mellitus with foot ulcer (principal); I87.331 Chronic venous hypertension (idiopathic) with ulcer and inflammation of right lower extremity; L97.419 Non-pressure chronic ulcer of right heel and midfoot with unspecified severity; R60.9 Edema, unspecified

== ENCOUNTER → 2024-05-16 | Outpatient (REF) | payer OTHER ==
[~2024-05-16] MED LIST changes: -MINERAL OIL/PETROLAT/GLYCERI 2OZ CRM ONE; +MINERAL OIL/PETROLAT/GLYCERI 6OZ BTL ONE
== END ==
LOC: WCC 08:00
PROVIDERS: ATTEND Podiatrist Foot & Ankle Surgery
DX: E11.621 Type 2 diabetes mellitus with foot ulcer (principal); L97.419 Non-pressure chronic ulcer of right heel and midfoot with unspecified severity; I87.331 Chronic venous hypertension (idiopathic) with ulcer and inflammation of right lower extremity; R60.9 Edema, unspecified

== ENCOUNTER → 2024-05-19 | Outpatient (REF) | payer OTHER ==
[~2024-05-19] MED LIST changes: -MINERAL OIL/PETROLAT/GLYCERI 6OZ BTL ONE
== END ==
LOC: WCC 08:00
PROVIDERS: ATTEND Podiatrist Foot & Ankle Surgery
DX: E11.621 Type 2 diabetes mellitus with foot ulcer (principal); I87.331 Chronic venous hypertension (idiopathic) with ulcer and inflammation of right lower extremity; L97.419 Non-pressure chronic ulcer of right heel and midfoot with unspecified severity; R60.9 Edema, unspecified

== ENCOUNTER → 2024-05-26 | Outpatient (REF) | payer OTHER ==
[~2024-05-26] MED LIST changes: +MINERAL OIL/PETROLAT/GLYCERI 6OZ BTL ONE
== END ==
LOC: WCC 05-24 08:05
PROVIDERS: ATTEND Podiatrist Foot & Ankle Surgery
DX: E11.621 Type 2 diabetes mellitus with foot ulcer (principal); L97.419 Non-pressure chronic ulcer of right heel and midfoot with unspecified severity; I87.331 Chronic venous hypertension (idiopathic) with ulcer and inflammation of right lower extremity; R60.9 Edema, unspecified

== ENCOUNTER → 2024-06-02 | Outpatient (REF) | payer OTHER | LOC: WCC 13:34 | PROVIDERS: ATTEND Podiatrist Foot & Ankle Surgery | DX: E11.621 Type 2 diabetes mellitus with foot ulcer (principal); L97.419 Non-pressure chronic ulcer of right heel and midfoot with unspecified severity; R60.9 Edema, unspecified ==

== ENCOUNTER → 2024-06-06 | Outpatient (REF) | payer OTHER ==
[~2024-06-06] MED LIST changes: -MINERAL OIL/PETROLAT/GLYCERI 6OZ BTL ONE
== END ==
LOC: WCC 10:21
PROVIDERS: ATTEND Podiatrist Foot & Ankle Surgery
DX: E11.621 Type 2 diabetes mellitus with foot ulcer (principal); L97.419 Non-pressure chronic ulcer of right heel and midfoot with unspecified severity; R60.9 Edema, unspecified

== ENCOUNTER → 2024-06-16 | Outpatient (REF) | payer OTHER ==
[~2024-06-16] MED LIST changes: +MINERAL OIL/PETROLAT/GLYCERI 6OZ BTL ONE
== END ==
LOC: WCC 14:25
PROVIDERS: ATTEND Podiatrist Foot & Ankle Surgery
DX: E11.621 Type 2 diabetes mellitus with foot ulcer (principal); L97.419 Non-pressure chronic ulcer of right heel and midfoot with unspecified severity; R60.9 Edema, unspecified

== ENCOUNTER → 2024-06-23 | Outpatient (REF) | payer OTHER | LOC: WCC 13:05 | PROVIDERS: ATTEND Podiatrist Foot & Ankle Surgery | DX: E11.621 Type 2 diabetes mellitus with foot ulcer (principal); L97.519 Non-pressure chronic ulcer of other part of right foot with unspecified severity; R60.9 Edema, unspecified ==

== ENCOUNTER → 2024-06-30 | Outpatient (REF) | payer OTHER | LOC: WCC 13:15 | PROVIDERS: ATTEND Podiatrist Foot & Ankle Surgery | DX: E11.621 Type 2 diabetes mellitus with foot ulcer (principal); L97.419 Non-pressure chronic ulcer of right heel and midfoot with unspecified severity; R60.9 Edema, unspecified ==

== ENCOUNTER → 2024-07-04 | Outpatient (REF) | payer OTHER | LOC: WCC 10:12 | PROVIDERS: ATTEND Podiatrist Foot & Ankle Surgery | DX: E11.621 Type 2 diabetes mellitus with foot ulcer (principal); L97.419 Non-pressure chronic ulcer of right heel and midfoot with unspecified severity; L97.519 Non-pressure chronic ulcer of other part of right foot with unspecified severity; R60.9 Edema, unspecified ==

== ENCOUNTER → 2024-07-07 | Outpatient (REF) | payer OTHER | LOC: WCC 10:44 | PROVIDERS: ATTEND Podiatrist Foot & Ankle Surgery | DX: E11.621 Type 2 diabetes mellitus with foot ulcer (principal); L97.419 Non-pressure chronic ulcer of right heel and midfoot with unspecified severity; R60.9 Edema, unspecified ==

== ENCOUNTER → 2024-07-11 | Outpatient (REF) | payer OTHER ==
[~2024-07-11] MED LIST changes: +TRYPSIN/BALSAM PERU/CASTOR OIL ONE
== END ==
LOC: WCC 13:05
PROVIDERS: ATTEND Podiatrist Foot & Ankle Surgery
DX: E11.621 Type 2 diabetes mellitus with foot ulcer (principal); L97.519 Non-pressure chronic ulcer of other part of right foot with unspecified severity; R60.9 Edema, unspecified

== ENCOUNTER → 2024-07-14 | Outpatient (REF) | payer OTHER ==
[~2024-07-14] MED LIST changes: -TRYPSIN/BALSAM PERU/CASTOR OIL ONE
[2024-07-14 16:53] LABS: BASOPHILS # (AUTO) 0.1 (0.0-0.1); BASOPHILS % 0.9 % (0.0-1.0); EOSINOPHILS # (AUTO) 0.2 (0.0-0.4); HEMATOCRIT 40.9 % (34.2-44.1); HEMOGLOBIN 12.8 g/dL (12.0-16.0); LYMPHOCYTES # (AUTO) 1.8 (1.0-3.2); LYMPHOCYTES % 23.1 % (18.0-39.1); MEAN CORPUSCULAR HEMOGLOBIN 29.7 pg (28-32); MEAN CORPUSCULAR HGB CONC 31.3 g/dL (31-35); MEAN CORPUSCULAR VOLUME 94.9 fL (81-99); MONOCYTES # (AUTO) 0.4 (0.2-0.8); MONOCYTES % 4.8 % (4.4-11.3); NEUTROPHILS # (AUTO) 5.5 (2.1-6.9); NEUTROPHILS % 68.8 % (38.7-80.0); PLATELET COUNT 157 x10e3/uL (140-360); RED BLOOD COUNT 4.31 x10e6/uL (3.6-5.1); RED CELL DISTRIBUTION WIDTH 13.9 % (11.7-14.4); WHITE BLOOD COUNT 7.92 x10e3/uL (4.8-10.8)
[2024-07-14 17:06] LABS: ALBUMIN 3.7 g/dL (3.5-5.0); ALBUMIN/GLOBULIN RATIO 1.2 (0.8-2.0); ANION GAP 12.5 mmol/L (8-16); BILIRUBIN,TOTAL 0.3 mg/dL (0.2-1.2); CALCIUM 9.2 mg/dL (8.4-10.2); CREATININE, SERUM 0.84 mg/dL (0.57-1.11); POTASSIUM 4.5 mmol/L (3.5-5.1); TOTAL PROTEIN 6.8 g/dL (6.5-8.1)
== END ==
LOC: WCC 15:33
PROVIDERS: ATTEND Podiatrist Foot & Ankle Surgery
DX: E11.621 Type 2 diabetes mellitus with foot ulcer (principal); L97.519 Non-pressure chronic ulcer of other part of right foot with unspecified severity; L97.419 Non-pressure chronic ulcer of right heel and midfoot with unspecified severity; L97.521 Non-pressure chronic ulcer of other part of left foot limited to breakdown of skin; R60.9 Edema, unspecified
CPT/HCPCS: 36415; 80053; 83036; 84550; 85025

== ENCOUNTER → 2024-07-21 | Outpatient (REF) | payer OTHER ==
[~2024-07-21] MED LIST changes: +TRYPSIN/BALSAM PERU/CASTOR OIL ONE
== END ==
LOC: WCC 12:32
PROVIDERS: ATTEND Podiatrist Foot & Ankle Surgery
DX: E11.621 Type 2 diabetes mellitus with foot ulcer (principal); L97.519 Non-pressure chronic ulcer of other part of right foot with unspecified severity; L97.521 Non-pressure chronic ulcer of other part of left foot limited to breakdown of skin; R60.9 Edema, unspecified

== ENCOUNTER → 2024-07-28 | Outpatient (REF) | payer OTHER ==
[~2024-07-28] MED LIST changes: -MINERAL OIL/PETROLAT/GLYCERI 6OZ BTL ONE; -TRYPSIN/BALSAM PERU/CASTOR OIL ONE
== END ==
LOC: WCC 15:22
PROVIDERS: ATTEND Podiatrist Foot & Ankle Surgery
DX: E11.621 Type 2 diabetes mellitus with foot ulcer (principal); L97.519 Non-pressure chronic ulcer of other part of right foot with unspecified severity; L97.521 Non-pressure chronic ulcer of other part of left foot limited to breakdown of skin; R60.9 Edema, unspecified

== ENCOUNTER → 2024-08-11 | Outpatient (REF) | payer OTHER | LOC: WCC 13:22 | PROVIDERS: ATTEND Podiatrist Foot & Ankle Surgery | DX: E11.621 Type 2 diabetes mellitus with foot ulcer (principal); L97.519 Non-pressure chronic ulcer of other part of right foot with unspecified severity; L97.521 Non-pressure chronic ulcer of other part of left foot limited to breakdown of skin; R60.9 Edema, unspecified ==

== ENCOUNTER → 2024-09-01 | Outpatient (REF) | payer OTHER | LOC: WCC 13:45 | PROVIDERS: ATTEND Podiatrist Foot & Ankle Surgery | DX: E11.621 Type 2 diabetes mellitus with foot ulcer (principal); L97.519 Non-pressure chronic ulcer of other part of right foot with unspecified severity; L97.511 Non-pressure chronic ulcer of other part of right foot limited to breakdown of skin; R60.9 Edema, unspecified ==